=== PATIENT | male | born 1970 | race African-American/Black ===

== ENCOUNTER 2025-02-05 10:57 | Emergency (ER) | payer MEDICAID ==
[~2025-02-05] VITALS: Ht 175.3 cm; Wt 76.0 kg
[2025-02-05 11:00] VITALS: TEMP 37; O2SAT 99
[2025-02-05 11:43] LABS: BASOPHILS % 0.6 % (0.0-2.0); EOSINOPHILS % 2.8 % (0.0-5.0); HEMATOCRIT. 44.2 % (42.0-52.0); HEMOGLOBIN. 14.9 g/dL (14.0-18.0); LYMPHOCYTES % 25.2 % (20.0-50.0); MEAN CORPUSCULAR HEMOGLOBIN 32.1 pg (28.0-32.0); MEAN CORPUSCULAR HGB CONC 33.6 g/dL (31.0-37.0); MEAN CORPUSCULAR VOLUME 95.3 fL (80.0-94.0); MEAN PLATELET VOLUME 7.8 fl (7.4-10.4); MONOCYTES % 9.2 % (2.0-8.0); NEUTROPHILS % 62.2 % (40.0-76.0); PLATELET 181 x1000/uL (130-400); RED BLOOD CELL COUNT 4.64 mill/uL (4.7-6.1); RED CELL DISTRIBUTION WIDTH 14.1 % (11.6-14.6); WHITE BLOOD COUNT 4.4 x1000/uL (4.5-11.0)
[2025-02-05 11:56] LABS: CHLORIDE 105 mEq/L (98-107); POTASSIUM 4.6 mEq/L (3.5-5.1); SODIUM 135 mEq/L (136-145)
[2025-02-05 11:57] LABS: CALCIUM 9.8 mg/dL (8.7-10.4); CARBON DIOXIDE 23 mEq/L (21-32)
[2025-02-05 12:00] LABS: PROTHROMBIN TIME 83.6 sec (9.6-11.0)
[2025-02-05 12:02] LABS: CREATININE 1.5 mg/dL (0.6-1.3); GLUCOSE 140 mg/dL (70-105); UREA NITROGEN BLOOD 18 mg/dL (9-23)
[2025-02-05 12:04] LABS: ALANINE AMINOTRANSFERASE 23 IU/L (10-49); ALBUMIN 4.7 g/dL (3.2-4.8); ASPARTATE AMINOTRANSFERASE 32 IU/L (<34); BILIRUBIN TOTAL 1.6 mg/dL (0.1-1.0)
[2025-02-05 12:05] LABS: PROTEIN TOTAL 7.4 g/dL (6.0-8.3)
[2025-02-05 12:23] LABS: INR 9.7
[2025-02-05 13:08] VITALS: BP 116/70; PULSE 71; RESP 16; O2SAT 100
== END 2025-02-05 13:09 | disposition home or self-care (01) ==
LOC: ER 10:57
DX: R79.1 Abnormal coagulation profile (principal); Z79.01 Long term (current) use of anticoagulants; Z95.2 Presence of prosthetic heart valve
CPT/HCPCS: 36415; 80053; 85025; 99283